=== PATIENT | male | born 1995 | race African-American/Black ===

== ENCOUNTER 2019-11-19 15:16 | Emergency (ER) | payer SELFPAY ==
[~2019-11-19] VITALS: Ht 182.9 cm; Wt 79.5 kg
[~2019-11-19 15:16] MED LIST: NO HOME MEDICATIONS
[2019-11-19 15:26] VITALS: BP 134/82; TEMP 98.9
[2019-11-19] MEDS ORDERED: NORCO 325 MG-51 TAB PO (16:27)
[2019-11-19 16:43] VITALS: PULSE 70
== END 2019-11-19 16:43 | disposition home or self-care (01) ==
LOC: COL.ER 15:16
DX: S52.502A Unspecified fracture of the lower end of left radius, initial encounter for closed fracture (principal); W19.XXXA Unspecified fall, initial encounter
CPT/HCPCS: Q4021